=== PATIENT | male | born 1960 | race Caucasian/White ===

== ENCOUNTER 2020-10-24 14:01 | Emergency (ER) | payer BC, SELFPAY ==
--- NOTE | ~2020-10-24 | XR_ITS ---
EXAMINATION: XR hand LT min 3V INDICATION: Left hand pain TECHNIQUE: Three views of the left hand are obtained. COMPARISON: None available FINDINGS: There is a nail in the tuft soft tissues of the second and third fingers. The nail does not appear to enter the distal phalanges. Soft tissue swelling of the fingers is present. The joint spac es are normal. Bone alignment is also normal. IMPRESSION: 1. Nail in the tuft soft tissue second and third fingers without acute osseous abnormality identified . Reviewed, dictated and finalized at location A. IMPRESSION: 1. Nail in the tuft soft tissue second and third fingers without acute osseous abnormality identified.
[2020-10-24 14:03] VITALS: BP 142/76; PULSE 78; RESP 18; TEMP 36.7; O2SAT 95
--- NOTE | 2020-10-24 15:27 | ED.GENADULT ---
HPI - General Adult General Chief complaint: Extremity Injury, Upper Stated complaint: I nailed my fingers together Time Seen by Provider: 10/24/20 14:17 Source: patient Mode of arrival: ambulatory Limitations: no limitations History of Present Illness HPI narrative: Patient 60-year-old male who presents to emergency department for evaluation of foreign bodies in the hand patient was using a Mani finishing nail gun when he accidentally discharged sending the Mani through the second and third distal phalanxes of the left hand patient notes aching pain took 2 hydrocodone prior to arrival from an old prescription. Patient denies any paresthesias patient notes aching pain states his tetanus is not up-to-date Related Data Home Medications Medication Instructions Recorded Confirmed tamsulosin 0.4 mg PO DAILY 10/24/20 10/24/20 Allergies Allergy/AdvReac Type Severity Reaction Status Date / Time No Known Allergies Allergy Verified 10/24/20 14:09 Review of Systems Review of Systems: All systems reviewed & are unremarkable except as noted in HPI and below PMFSH Social History Social History Smoking status: Never smoker Second hand tobacco smoke exposure: No Alcohol intake: current Exam Narrative: Exam Narrative: GENERAL: Well-appearing, well-nourished, and in no acute distress. HEAD: Normocephalic, atraumatic. EYES: PERRLA and EOMI. ENT: Nares clear, no rhinorrhea or epistaxis. Mucous membranes moist. EXTREMITIES: Normal range of motion. No edema. SKIN: Warm, dry, no rash. NEURO: No focal deficits. Alert and oriented x3. Cranial nerves II through XII grossly intact. Neurovascularly intact PSYCH: Normal mood and affect. Course Course Emergency Course: Patient in the room in no distress aware of case findings treatment plan and diagnosis agreeing to follow-up as directed or to return if symptoms worsen or concerns. Foreign bodies were removed from the finger. No complications. Patient will follow with primary care and is also been given plastic surgery referral for worsening symptoms. Vital Signs Vital signs: Vital Signs Temperature 98.0 F 10/24/20 14:03 Pulse Rate 78 10/24/20 14:03 Respiratory Rate 18 10/24/20 14:03 Blood Pressure 142/76 H 10/24/20 14:03 Pulse Oximetry 95 10/24/20 14:03 Temperature 98.0 F 10/24/20 14:03 Pulse Rate 78 10/24/20 14:03 Respiratory Rate 18 10/24/20 14:03 Blood Pressure 142/76 H 10/24/20 14:03 Pulse Oximetry 95 10/24/20 14:03 Procedures Other Procedure Procedure 1: Other Procedure: Digital blocks were performed to the second and third phalanxes of the left hand metal Mani was removed using hemostats. Neurovascularly intact pre and post procedure. Nonadhesive antibiotic ointment 4 x 4 and Coban placed post procedure Medical Decision Making MDM Narrative Medical decision making narrative: Patients injury or pain is consistent with musculoskeletal etiology. No signs of neurological or vascular compromise on exam. Compartments and tisues are soft without signs of compartment syndrome. Pain is felt appropriate for further evaluation on an outpatient basis. Vital Signs Vital Signs: Vital Signs Temperature 98.0 F 10/24/20 14:03 Pulse Rate 78 10/24/20 14:03 Respiratory Rate 18 10/24/20 14:03 Blood Pressure 142/76 H 10/24/20 14:03 Pulse Oximetry 95 10/24/20 14:03 Temperature 98.0 F 10/24/20 14:03 Pulse Rate 78 10/24/20 14:03 Respiratory Rate 18 10/24/20 14:03 Blood Pressure 142/76 H 10/24/20 14:03 Pulse Oximetry 95 10/24/20 14:03 Discharge Plan Discharge Clinical Impression: Foreign body of finger Patient Disposition: Home, Self-Care Condition: Stable Instructions: Antibiotic Form, Acute Wounds (ED) Additional Instructions: Follow up with primary care in the next 2-3 days for re-evaluation take antibiotics as directed. ret
[2020-10-24] MEDS: TETANUS,DIPHTHERIA,AC PERTUSSIS ADULT (0.5 ML) BOOSTRIX IM (15:51)
== END 2020-10-24 15:54 | disposition home or self-care (01) ==
PROVIDERS: Emergency Provider Emergency Medicine; PCP Internal Medicine
DX: S61.241A Puncture wound with foreign body of left index finger without damage to nail, initial encounter (principal); S61.243A Puncture wound with foreign body of left middle finger without damage to nail, initial encounter; Z23 Encounter for immunization; W29.4XXA Contact with nail gun, initial encounter
CPT/HCPCS: 73130; 90471; 90715; 99283

== ENCOUNTER 2022-04-24 06:57 | Outpatient (CLI) | payer BC, SELFPAY ==
--- NOTE | ~2022-04-24 | CT_ITS ---
EXAMINATION: CT abdomen pelvis w con INDICATION: Left lower abdominal pain TECHNIQUE: Computed tomographic images of the abdomen and pelvis were obtained after the administrati on of 100 cc of Omnipaque 350 intravenous contrast. The dose-length product (DLP) was 736.90 mGy-cm. Automated exposure control and iterative reconstruction technique were employed. COMPARISON: None available FINDINGS: Minimal dependent atelectasis is present in the lung bases. The heart size is normal. The l iver, spleen, pancreas, gallbladder, and adrenal glands are normal. The kidneys are unremarkable. No pathologically enlarged abdominal or pelvic lymph nodes are identified. There is no free intraperiton eal gas or evidence of bowel obstruction. The appendix is normal. There is a left inguinal hernia con taining a short segment of nonobstructed sigmoid colon. There is severe lumbar spondylosis. IMPRESSION: 1. Left inguinal hernia containing a short segment of nonobstructed sigmoid colon. Reviewed, dictated and finalized at location A. IMPRESSION: 1. Left inguinal hernia containing a short segment of nonobstructed sigmoid col on.
[2022-04-24 07:21] LABS: Estimated Glomerular Filt Rate 56
== END 2022-04-24 06:58 | disposition home or self-care (01) ==
PROVIDERS: PCP Family Medicine; Visit Provider Nurse Practitioner Adult Health
DX: K40.90 Unilateral inguinal hernia, without obstruction or gangrene, not specified as recurrent (principal); M47.816 Spondylosis without myelopathy or radiculopathy, lumbar region
CPT/HCPCS: 74177; Q9967

== ENCOUNTER 2022-05-26 07:39 | Outpatient (CLI) | payer BC, SELFPAY ==
--- NOTE | 2022-05-26 07:57 | ECG_ITS ---
Measurements Intervals [place] Rate: 70 P: 60 LA: 164 QRS: -9 QRSD: 94 T: 18 QT: 373 QTc: 405 Interpretive Statements SINUS RHYTHM NORMAL ECG NO PREVIOUS ECG AVAILABLE FOR COMPARISON Electronically Signed On 05-26-2022 8:10:43 VARIETY LATHE OPERATOR by Ty Dumont D.O.
== END 2022-05-26 07:40 | disposition home or self-care (01) ==
LOC: ANHSURGERY 07:44
PROVIDERS: PCP Family Medicine; Visit Provider Surgery
DX: K40.90 Unilateral inguinal hernia, without obstruction or gangrene, not specified as recurrent (principal); Z87.891 Personal history of nicotine dependence
CPT/HCPCS: 36415; 86850; 86900; 86901; 93005

== ENCOUNTER 2022-05-31 00:47 | Day surgery (SDC) | payer BC, SELFPAY ==
[2022-05-24 13:51] VITALS: BMI 28.1
--- NOTE | 2022-05-24 13:55 | PC.NURSE ---
Report to the Outpatient Waiting Room, entrance under the green pavilion located off [facility], at time 6:00 on date 05/31/22. Planned Procedure Time: 7:30. Time changes happen often and if your time is changed the preop area will call you the afternoon before. - You and your visitor will be asked to self-screen and do not enter if you have any COVID symptoms. - We encourage only one visitor and NO visitors under age 16 are allowed at this time. Your visitor will receive communication by the phone number that is given day of service. - The patient visitor is requested to social distance or may leave the building when not with patient due to restrictions. - A mask is OPTIONAL within the hospital. Patients may have clear liquids (water, carbonated beverages, clear teas, apple juice) until 3 hours prior to surgery (4:30) with a maximum of 20 ounces. - No food from midnight until time of surgery Take the following medications with a SIP of water the morning of surgery: NONE Medications to discontinue per physician: N/A Date to take last dose: N/A Please no make-up, nail kosovan, hairspray, perfume, deodorant, or body powder the day of surgery. No jewelry (including any body piercings) or valuables the day of surgery, leave them at home. Please take a shower or bath the night before, or the morning of, surgery with an antibacterial soap (HIBICLENS). Wear comfortable, loose fitting clothing. - Jewelry must be removed prior to entering the operating room. Rings and piercings that are not removed may be cut off. - The hospital will not accept responsibility for valuables. - Please leave all valuables, including medications, at home the day of surgery. If you are going home after surgery, a licensed national flatbed truck driver must drive you home. - NO public transportation without another adult. - We recommend that an adult stay with you for 24 hours following discharge. - We also recommend that you do not drive, make important decision, drink alcoholic beverages, or take any drugs that were not prescribed by your health care provider for at least 24 hours after your discharge time. Follow any additional instructions given to you from your surgeon. If you or anyone in your household have experienced Covid symptoms in the past week, please notify your surgeon or the nurse liaison at the phone number below for possible testing. Telephone instructions given to PT - BLAS NOVOA and asked if any additional questions and then verbalized understanding. Patient advised to call surgeon office or pre surgery nurse liaison [phone] if any additional questions.
[2022-05-31] VITALS (10 sets, daily range): BP systolic 119–137; BP diastolic 71–89; PULSE 51–78; RESP 13–20; TEMP 36.4–36.9; O2SAT 97–100
[2022-05-31] MEDS: ACETAMINOPHEN 500 MG TABLET 1000 MG PO (06:30)
[2022-05-31] MEDS: LACTATED RINGERS 1,000 ML 30 ML IV CONT ×2 (07:00→08:53)
[2022-05-31] MEDS: KETOROLAC 15 MG/ML VIAL (*BKC) IV PUSH (07:00)
--- NOTE | 2022-05-31 07:08 | WPDHPUPDATE1 ---
History and Physical Update Update Date/Time: 05/31/22 07:08 History and Physical has been reviewed, including an updated exam of the patient. There are NO changes in the patient's condition. Risks, benefits, and alternatives have been discussed and questions answered. Patient agrees to proceed with procedure.
--- NOTE | 2022-05-31 07:18 | WPDANESEPPF ---
Anes - Initial Pre Proc Eval Procedure: Operation Date: 05/31/22 07:30 Proposed Procedures p Laparoscopic Left Inguinal Hernia Repair, with Mesh Davinci Assisted - Henrry Hollis DO Date/Time: 05/31/22 07:18 Surgeon: Henrry Hollis DO Pre Op Diagnosis: left inguinal hernia Patient Data Age: 61 Gender: M Height: 1.91 m Weight: 106.9 kg Last Vital Signs Temp 97.5 F L 05/31/22 07:04 Pulse 70 05/31/22 07:04 Resp 16 05/31/22 07:04 BP 128/83 05/31/22 07:04 Pulse Ox 99 05/31/22 07:04 O2 Del Method Room Air 05/31/22 07:04 Allergies Allergy/AdvReac Type Severity Reaction Status Date / Time No Known Allergies Allergy Verified 05/31/22 06:20 Home Medications Medication Instructions Recorded Confirmed Type tadalafil 10 mg tablet 10 mg PO DAILY 05/01/22 05/24/22 History Patient hx anesthesia problems: none Family hx anesthesia problems: none Results Review: All pre-operative results and documents have been reviewed as part of the pre-operative evaluation. [facility] Past Medical History Medical History (Updated 05/30/22 @ 14:02 by Glenn Araujo MD) Mixed hyperlipidemia Surgical History Surgical History H/O colonoscopy 2014 Family History Family History Father Alzheimer disease Social History Social History Smoking packs per day: 2 Smoking cigarettes per day: 40.0 Years smoked: 25 Smoking pack-years: 50.00 Smoking status: Former smoker Tobacco type: cigarettes Second hand tobacco smoke exposure: No Smoking end date: 07/16/98 Alcohol intake: current Drinks per week: 30 Substance use: never Substance use type: does not use Living arrangements: with family Additional occupation/education comments: [employer] Spiritual care concerns: No Anes - Eval Final PreProcedure Day of Procedure 05/31/22 07:18 Patient weight: normal Heart: regular rate and rhythm Lungs: clear to auscultation Airway: Mallampati scale class II Neurological: alert and oriented Last oral intake: >/= 8 hours ASA classification: II Emergent: no Anesthetic plan: proceed Anesthesia type and monitoring: general ETT and standard monitoring Results Review: All pre-operative results and documents have been reviewed as part of the pre-operative evaluation. Informed Consent: The patient's anesthetic plan and its attendant risks and benefits were discussed with the patient/family/POA. Questions were solicited and answers provided to the satisfaction of the patient/family/POA.
[2022-05-31] MEDS: ceFAZolin 2 GM/D5W 50 ML 2 GM/50 ML BAG IVPB (07:24)
[2022-05-31] MEDS: BUPIVACAINE/EPINEPHRINE 0.25% 50 ML VIAL 23 ML INFILTRATE (07:50)
--- NOTE | 2022-05-31 08:41 | W.PM.PROC2 ---
Procedure Note - Detailed Date of Procedure 05/31/22 Pre-op Diagnosis left inguinal hernia Post-op Diagnosis Same Procedure Performed Laparoscopic left inguinal hernia repair with mesh, da Eun assisted Surgeon Henrry Hollis DO Anesthesia General and Local (0.5% bupivacaine with epinephrine) Indications This is a 61-year-old man who presented with a left inguinal hernia. First noticed a bulge about [address] of his abdomen and pelvis showed evidence of a left inguinal hernia containing a short segment of his sigmoid colon. The hernia was reducible on exam. Discussions were made with the patient about treatment options and decision was made to proceed with robotic assisted laparoscopic left inguinal hernia repair with mesh. Findings Laparoscopic left inguinal hernia repair was performed. Patient was found to have a moderate-sized indirect left inguinal hernia. The sigmoid colon was going right up to the opening of the hernia defect, but it did not appear incarcerated within it. A robotic transabdominal preperitoneal approach was utilized. Once a wide enough preperitoneal pocket was created and the hernia sac was reduced, I then placed a large left Bard 3DMax mesh overlying the entire left myopectineal orifice. No other abnormalities were noted and no specimens were obtained for pathology. Description of Procedure Procedure as well as risks, benefits, and alternatives were discussed with the patient. Written consent was obtained and placed in chart prior to procedure. Patient was brought back to surgical suite. He was placed supine on operating table. Time-out was done to confirm patient and procedure. He was then intubated by Anesthesia Department. His abdomen was prepped and draped in sterile fashion using chlorhexidine prep. 0.5% bupivacaine with epinephrine was infiltrated at each location for incision. An 8 mm incision was made in the left lateral abdomen, and a 5 mm Optiview trocar was advanced through the abdominal layers under direct visualization. Once inside the abdominal cavity, carbon dioxide insufflation was used to create a pneumoperitoneum. A camera was inserted and the abdominal cavity was inspected. The patient was placed in slight Trendelenburg position. An 8 millimeter incision was made on the right lateral abdomen and an 8 millimeter trocar was inserted under direct visualization. Another 8 millimeter incision was made just superior to the umbilicus and an 8 millimeter trocar was inserted under direct visualization. The 5 mm port was then removed and this was replaced with another 8 mm robotic port. The robotic arms were brought up to the patient's bedside and secured to the ports. The camera and instruments were inserted. I then moved over to the robotic console and took control of the camera and instruments. After careful inspection of the abdominal cavity, I began scoring the peritoneum along the left lower quadrant using scissors with electrocautery. The preperitoneal plane was entered and this was carefully dissected caudally along the inferior epigastric vessels. Careful dissection with scissors with electrocautery and blunt dissection was used to continue this dissection. I dissected far enough laterally to allow for mesh placement, and also dissected medially to identify the pubic arch and Ashish's ligament. The hernia sac was identified and carefully dissected posteriorly. The cord contents were also identified and the peritoneum was carefully dissected far enough posteriorly to allow for mesh placement. Once an adequate pocket was created, I then placed the mesh within the preperitoneal pocket and carefully unfolded it. The mesh was centered on the hernia defect with adequate overlap circumferentially. The inferior edge of the mesh was inspected to ensure that it was far enough away from the peritoneal edge. The mesh appeared in proper position overlying the entire myopectineal orifice. The mesh was
[2022-05-31] MEDS: fentaNYL CITRATE INJ (*CRX) 100 MCG/2 ML VIAL 25 MCG IV PUSH ×2 (09:18→09:23)
[2022-05-31] MEDS: oxyCODONE HCL (*CRX) 5 MG TAB IR PO (09:59)
== END 2022-05-31 11:50 | disposition home or self-care (01) ==
PROVIDERS: PCP Family Medicine; Visit Provider Surgery
PROC: 8E0Y4CZ Robotic Assisted Procedure of Lower Extremity, Percutaneous Endoscopic Approach (ICD-10-PCS; CPT 49650; principal; 2022-05-31 07:30)
DX: K40.90 Unilateral inguinal hernia, without obstruction or gangrene, not specified as recurrent (principal); E78.2 Mixed hyperlipidemia; Z87.891 Personal history of nicotine dependence
CPT/HCPCS: 49650; S2900; A9270; C1781; J0330; J0690; J1100; J1170; J1885; J2250; J2405; J2704; J2710; J3010; J7030; J7120

== ENCOUNTER 2023-05-16 00:56 | Day surgery (SDC) | payer BC, SELFPAY ==
[2023-05-03 13:05] VITALS: BMI 28.0
[2023-05-16 06:17] VITALS: BP 131/85; PULSE 70; RESP 20; TEMP 36.4; O2SAT 99; BMI 29.0
[2023-05-16] MEDS: LACTATED RINGERS 1,000 ML 150 ML IV CONT (06:20)
--- NOTE | 2023-05-16 07:31 | P.PNAN_ITS ---
Anes - Initial Pre Proc Eval Procedure: Operation Date: 05/16/23 07:30 Proposed Procedures p Screening Colonoscopy - Shlomo Liu MD Date/Time: 05/16/23 07:31 Surgeon: Shlomo Liu MD Pre Op Diagnosis: hx of colon polyps Patient Data Age: 62 Gender: M Height: 1.91 m Weight: 105.4 kg Last Vital Signs Temp 97.6 F 05/16/23 06:17 Pulse 70 05/16/23 06:17 Resp 20 05/16/23 06:17 BP 131/85 05/16/23 06:17 Pulse Ox 99 05/16/23 06:17 O2 Del Method Room Air 05/16/23 06:17 Allergies Allergy/AdvReac Type Severity Reaction Status Date / Time No Known Allergies Allergy Verified 05/16/23 06:15 Home Medications Medication Instructions Recorded Confirmed Type tadalafil 10 mg tablet 10 mg PO DAILY 05/01/22 05/16/23 History Patient hx anesthesia problems: none Family hx anesthesia problems: none Results Review: All pre-operative results and documents have been reviewed as part of the pre- operative evaluation. [facility] Past Medical History Medical History (Updated 03/28/23 @ 10:43 by Ru Miller MD) Alzheimer's disease, familial Family history of aortic aneurysm History of smoking Mixed hyperlipidemia Screening for colon cancer Surgical History Surgical History H/O colonoscopy 2014 Hx of left inguinal hernia repair lap [facility] re w/ mesh, Da Eun assisted 05/31/22 Family History Family History Father Alzheimer disease Social History Social History Smoking packs per day: 2 Smoking cigarettes per day: 40.0 Years smoked: 25 Smoking pack-years: 50.00 Smoking status: Former smoker Tobacco type: cigarettes Second hand tobacco smoke exposure: No Smoking end date: 07/16/98 Alcohol intake: current Drinks per week: 18 Substance use: never Substance use type: does not use Living arrangements: with family Occupation/Education: occupation Additional occupation/education comments: [employer] Spiritual care concerns: No Anes - Eval Final PreProcedure Day of Procedure 05/16/23 07:31 Patient weight: normal Heart: regular rate and rhythm Lungs: clear to auscultation Airway: Mallampati scale class II Neurological: alert and oriented Last oral intake: >/= 8 hours ASA classification: II Emergent: no Anesthetic plan: proceed Anesthesia type and monitoring: general GIVS and standard monitoring Results Review: All pre-operative results and documents have been reviewed as part of the pre- operative evaluation. Informed Consent: The patient's anesthetic plan and its attendant risks and benefits were discussed with the patient/family/POA. Questions were solicited and answers provided to the satisfaction of the patient/family/POA.
--- NOTE | 2023-05-16 07:36 | PM.HPGS ---
History of Present Illness History of Present Illness Consent: Risks, benefits, and alternatives have been discussed and questions answered. Patient agrees to proceed with procedure. Chief complaint: hx of colon polyps Narrative: Yaw Reddy is a 62 year old male with last colonoscopy 7 years ago Review of Systems Constitutional: Constitutional: Denies headache(s) and Denies weakness Eyes: Eyes: Denies blurry vision ENT: Reports Normal hearing present, Denies headache(s) and Denies neck pain Cardiovascular: Cardiovascular: Denies chest pain and Denies dyspnea Respiratory: Respiratory: Denies dyspnea Gastrointestinal: Gastrointestinal: Reports no additional gastrointestinal complaints Genitourinary: Genitourinary: Denies dysuria Musculoskeletal: Musculoskeletal: Denies neck pain Integumentary/Breasts: Skin/Breast: Denies dry skin Neurologic: Reports Normal hearing present, Denies headache(s) and Denies weakness Psychiatric: Psychiatric: Denies anxiety Endocrine: Endocrine: Denies change in body appearance Hematologic/Lymphatic: Hematologic/Lymphatic: Denies easy bleeding Allergic/Immunologic: Allergic/Immunologic: Denies urticaria [facility] Past Medical History Medical History (Updated 03/28/23 @ 10:43 by Ru Miller MD) Alzheimer's disease, familial Family history of aortic aneurysm History of smoking Mixed hyperlipidemia Screening for colon cancer Surgical History Surgical History H/O colonoscopy 2014 Hx of left inguinal hernia repair lap [facility] re w/ mesh, Da Eun assisted 05/31/22 Family History Family History Father Alzheimer disease Social History Social History Smoking packs per day: 2 Smoking cigarettes per day: 40.0 Years smoked: 25 Smoking pack-years: 50.00 Smoking status: Former smoker Tobacco type: cigarettes Second hand tobacco smoke exposure: No Smoking end date: 07/16/98 Alcohol intake: current Drinks per week: 18 Substance use: never Substance use type: does not use Living arrangements: with family Occupation/Education: occupation Additional occupation/education comments: [employer] Spiritual care concerns: No Meds Home Medications and Allergies Home Medications Medication Instructions Recorded Confirmed Type tadalafil 10 mg tablet 10 mg PO DAILY 05/01/22 05/16/23 History Allergies Allergy/AdvReac Type Severity Reaction Status Date / Time No Known Allergies Allergy Verified 05/16/23 06:15 Vital Signs Vital Signs - 24 hr 05/16/23 06:17 Temperature 97.6 F Pulse Rate 70 Respiratory Rate 20 Blood Pressure 131/85 Pulse Oximetry 99 Oxygen Delivery Room Air Exam Const: General: comfortable and no acute distress HENMT: Face/Nose/Sinus: Normal nares present Eyes: General: appearance normal, both eyes and all related structures Neck: Neck: no JVD Resp: Auscultation: clear to auscultation bilaterally Cardio: Rate: regular rate Rhythm: regular rhythm GI: Inspection: non-distended GI Palp: Yes Soft to palpation Skin: General skin exam: normal color Neuro: General: gait normal Speech: normal speech Extrem: General: normal to inspection Psych: Mental Status: mental status grossly normal Assessment and Plan Assessment and plan (1) Screening for colon cancer: Code(s): Z12.11 - Encounter for screening for malignant neoplasm of colon Status: Acute Assessment and Plan: colonoscopy
[2023-05-16 07:55] VITALS: BP 100/59; PULSE 68; RESP 18; O2SAT 97
[2023-05-16 08:05] VITALS: BP 132/62; PULSE 62; RESP 18; O2SAT 100
[2023-05-16 08:15] VITALS: BP 136/82; PULSE 60; RESP 18; O2SAT 100
== END 2023-05-16 08:22 | disposition home or self-care (01) ==
PROVIDERS: PCP Family Medicine; Visit Provider Internal Medicine Gastroenterology
PROC: 0DJD8ZZ Inspection of Lower Intestinal Tract, Via Natural or Artificial Opening Endoscopic (ICD-10-PCS; CPT 45378; principal; 2023-05-16 07:30)
DX: Z12.11 Encounter for screening for malignant neoplasm of colon (principal); D12.2 Benign neoplasm of ascending colon; D12.3 Benign neoplasm of transverse colon; K57.30 Diverticulosis of large intestine without perforation or abscess without bleeding; G30.9 Alzheimer's disease, unspecified; F02.80 Dementia in other diseases classified elsewhere, unspecified severity, without behavioral disturbance, psychotic disturbance, mood disturbance, and anxiety; E78.2 Mixed hyperlipidemia; Z87.891 Personal history of nicotine dependence
CPT/HCPCS: 45385; 45380; 88305; J2001; J2704; J7120